=== PATIENT | female | born 2000 | race Caucasian/White ===

== ENCOUNTER 2022-08-08 01:50 | Emergency (ER) | payer OTHER, SELFPAY ==
--- NOTE | ~2022-08-08 | XR_ITS ---
Left Hand Technique: PA, oblique, and lateral views were obtained. Clinical History: Pain Findings: No acute fracture or dislocation is seen. Osseous alignment is anatomic. Joint spaces are p reserved. Soft tissues are unremarkable. Impression: Unremarkable left hand. Reviewed, dictated and finalized at location [facility] Impression: Unremarkable left hand.
[2022-08-08 01:53] VITALS: BP 112/71; PULSE 100; RESP 18; TEMP 36.2; O2SAT 100
--- NOTE | 2022-08-08 02:10 | PC.NURSE ---
Pt slammed her left thumb in car door around 1999. States she took ibuprofen and tylenol around [id number]. Bruising noted to nailbed. Mild swelling noted. Pt has been applying ice.
--- NOTE | 2022-08-08 02:18 | ED.UPPEXIN ---
HPI - Extremity Injury (Upper) General Chief Complaint: Extremity Injury, Upper Stated Complaint: left thumb injury Time Seen by Provider: 08/08/22 02:01 Source: patient and RN notes reviewed Mode of arrival: ambulatory Limitations: no limitations History of Present Illness HPI narrative: THis is a 22 year old right hand dominant female who presents for evaluation of left thumb injury. Patient states around 8 pm last night she slammed her left thumb in car door. She reports she is now having thumb and 4th finger pain. She took tylenol and naproxen at 11 pm, and her pain has not improved. She is also applying ice pack. Related Data Allergies Allergy/AdvReac Type Severity Reaction Status Date / Time No Known Allergies Allergy Unverified 03/16/20 16:51 Review of Systems Constitutional: Constitutional: Denies chills, Denies fatigue and Denies fever(s) PMFSH Past Medical History Medical History (Updated 08/08/22 @ 03:07 by Yecenia Gamez MD) Patient denies medical problems Family History Family History Grandparent Hypertension Family history of malignant neoplasm of urinary bladder Social History Social History Smoking status: Never smoker Exam Const: General: no acute distress and alert Nutritional Appearance: well nourished Orientation/consciousness: patient oriented x3 HENMT: Head: normal to inspection Eyes: EOM: EOMs intact bilaterally Resp: Effort & Inspection: normal respiratory effort Skin: General skin exam: normal color Rashes: no rashes Wounds: no wounds Neuro: General: patient oriented x3, moves all extremities and CN's II-XI intact bilaterally Extrem: Other: left thumb with subungal hematoma, FROM, no swelling Psych: Mental Status: mental status grossly normal Affect: normal affect Attitude: cooperative Course Reevaluation(s) Reevaluation #1: I Discussed with patient that preliminary reading of xray was no acute fracture, but it will be read in morning by radiologist. I Discussed treatment of subungal hematoma with nail trephination. She was agreeable to procedure since she was having severe pain. AFter procedure she reports her pain is much improved. Date: 08/08/22 Time: 03:03 Vital Signs Vital signs: Vital Signs Temperature 97.2 F L 08/08/22 01:53 Pulse Rate 100 08/08/22 01:53 Respiratory Rate 18 08/08/22 01:53 Blood Pressure 112/71 08/08/22 01:53 Pulse Oximetry 100 08/08/22 01:53 Oxygen Delivery Room Air 08/08/22 01:53 Temperature 97.2 F L 08/08/22 01:53 Pulse Rate 70 08/08/22 03:13 Respiratory Rate 14 08/08/22 03:13 Blood Pressure 110/66 08/08/22 03:13 Pulse Oximetry 100 08/08/22 03:13 Oxygen Delivery Room Air 08/08/22 01:53 Procedures Nail Trephination Nail Trephination #1: Nail Trephination Date: 08/08/22 Nail Trephination Time: 03:04 Location (finger): left and thumb Sterile prep: chlorhexidine Method of drainage: nail cautery Procedure successful: Yes Patient tolerated procedure: well Complications: bleeding Nail Trephination Comment: able to get bleeding controlled MDM - Extremity Injury (Upper) Imaging Data Attestation: I personally reviewed and interpreted this imaging study as follows: My impression: no acute fracture Discharge Plan Discharge Clinical Impression: Hematoma, subungual, thumb, left Patient Disposition: Home, Self-Care Condition: Stable Instructions: Antibiotic Form, Subungual Hematoma (ED) Additional Instructions: Keep your nail clean. Watch for signs of infection. Take naproxen or aleve for your pain. Prescriptions: No Action triamcinolone acetonide 0.1 % cream 1 applic topical BID PRN (Reason: atopic dermatitis) Qty: 15 0RF naproxen 500 mg tablet 500 mg PO BID PRN (Reason: pain) Qty: 60
[2022-08-08 03:13] VITALS: BP 110/66; PULSE 70; RESP 14; O2SAT 100
== END 2022-08-08 03:14 | disposition home or self-care (01) ==
PROVIDERS: Emergency Provider General Practice; PCP Nurse Practitioner
DX: S60.112A Contusion of left thumb with damage to nail, initial encounter (principal); W23.2XXA Caught, crushed, jammed or pinched between a moving and stationary object, initial encounter
CPT/HCPCS: 10140; 11740; 73130; 99283

== ENCOUNTER 2023-07-06 10:27 | Outpatient (CLI) | payer OTHER, SELFPAY ==
[2023-07-06 12:22] LABS: Basophils Percent Auto 0.2 % (0.2-1.2); Eosinophils Percent Auto 0.6 % (0-4.4); Immature Granulocyte Absolute 0.02 K/mm3 (0.00-0.031); Immature Granulocyte Percent A 0.3 % (0-0.5); Lymphocytes Absolute Auto 1.08 K/mm3 (0.9-3.2); Lymphocytes Percent Auto 16.4 % (18.3-44.2); Mean Corpuscular HGB Conc 33.3 g/dl (32-36); Mean Corpuscular Hemoglobin 29.2 pg (26-34); Mean Corpuscular Volume 87.6 fl (80-100); Mean Platelet Volume 9.9 fl (7.4-10.4); Monocytes Absolute Auto 0.5 K/mm3 (0.1-0.6); Monocytes Percent Auto 7.3 % (2.6-8.5); Neutrophils Percent Auto 75.2 % (45.5-73.1); Platelet Count Result 238 k/mm3 (150-375); Red Blood Count 4.11 M/mm3 (4.2-5.4); Red Cell Distribution Width 12.5 % (11.5-14.5); White Blood Count 6.6 K/mm3 (4.5-10.0)
[2023-07-06 13:06] LABS: HIV 1/2 Ab P24 Ag Result Negative (Negative)
[2023-07-06 13:18] LABS: Hepatitis B Surface Antigen Negative (Negative); Rubella IgG Antibody 8.1 IU/ML
[2023-07-06 14:53] LABS: Rapid Plasma Reagin Non-Reactive (NonReactive)
[2023-07-08 09:53] LABS: CMV IgG Antibody <0.60 U/mL (<0.60)
== END 2023-07-06 10:28 | disposition home or self-care (01) ==
LOC: ANHGOSHLAB 10:29
PROVIDERS: PCP Nurse Practitioner; Visit Provider Student in an Organized Health Care Education/Training Program
DX: Z34.90 Encounter for supervision of normal pregnancy, unspecified, unspecified trimester (principal)
CPT/HCPCS: 36415; 84702; 85025; 86592; 86644; 86703; 86747; 86762; 86787; 86850; 86900; 86901; 87086; 87340; G0432

== ENCOUNTER 2023-07-06 16:38 | Emergency (ER) | payer OTHER, SELFPAY ==
[2023-07-06 16:48] VITALS: BP 103/71; PULSE 108; RESP 14; TEMP 36.8; O2SAT 100
[2023-07-06 19:04] VITALS: BP 139/72; PULSE 97; RESP 16; TEMP 36.9; O2SAT 100
--- NOTE | 2023-07-06 22:19 | PC.NURSE ---
no answer at triage x2
== END 2023-07-06 22:19 | disposition left against medical advice (07) ==
LOC: ANHED 22:23
PROVIDERS: Emergency Provider Student in an Organized Health Care Education/Training Program; PCP Nurse Practitioner
DX: O20.9 Hemorrhage in early pregnancy, unspecified (principal)
CPT/HCPCS: 99199

== ENCOUNTER 2023-11-23 11:04 | Outpatient (CLI) | payer OTHER, SELFPAY ==
[2023-11-23 14:21] LABS: Hematocrit 31.3 % (37.0-47.0); Hemoglobin 10.4 g/dL (12.0-15.0); Mean Corpuscular HGB Conc 33.2 g/dl (32-36); Mean Corpuscular Hemoglobin 30.2 pg (26-34); Mean Platelet Volume 9.9 fl (7.4-10.4); Platelet Count Result 243 k/mm3 (150-375); Red Blood Count 3.44 M/mm3 (4.2-5.4); Red Cell Distribution Width 13.4 % (11.5-14.5); White Blood Count 10.5 K/mm3 (4.5-10.0)
[2023-11-23 15:35] LABS: Glucose 1 Hour PP 50gm Dose 115 mg/dL
[2023-11-23 15:59] LABS: HIV 1/2 Ab P24 Ag Result Negative (Negative)
== END 2023-11-23 11:05 | disposition home or self-care (01) ==
LOC: ANHGOSHLAB 11:08
PROVIDERS: PCP Nurse Practitioner; Visit Provider Student in an Organized Health Care Education/Training Program
DX: Z34.90 Encounter for supervision of normal pregnancy, unspecified, unspecified trimester (principal)
CPT/HCPCS: 36415; 82947; 85027; 86703; G0432

== ENCOUNTER 2024-01-22 20:43 | Observation (INO) | payer OTHER, SELFPAY ==
[2024-01-22 22:32] VITALS: BMI 25.8
--- NOTE | 2024-01-22 22:33 | OBADM ---
This patient, Kylee Lopez, admitted to the OB room Labor/Delivery/Recovery 105 for observation. Patient/family oriented to hospital policies and general routines including ID bracelet, bed and alarms, visiting hours, pain management, procedures, bathroom and other care routines, personal items, smoking policy, room service/diet, and visiting hours. Patient/Family are encouraged to report perceived risks to care and to ask questions if they do not understand what they are told or what they should do.
--- NOTE | 2024-01-25 11:49 | PM.OBTRLD ---
OB - Triage/Final Diagnosis Visit Information Comments/Additional reasons for admission: I have assessed the risk for this patient, Kylee Lopez, and determined that she would benefit from observation care. Final Diagnosis (1) Abdominal pain affecting : Code(s): O26.899 - Other specified related conditions, unspecified trimester; R10.9 - Unspecified abdominal pain Status: Acute
== END 2024-01-22 22:43 | disposition home or self-care (01) ==
PROVIDERS: Admitting Provider Obstetrics & Gynecology; Visit Provider Obstetrics & Gynecology
DX: O26.893 Other specified pregnancy related conditions, third trimester (principal); R10.9 Unspecified abdominal pain; Z3A.37 37 weeks gestation of pregnancy
CPT/HCPCS: G0378; G0379

== ENCOUNTER 2024-02-03 04:51 | Inpatient (IN) | payer OTHER, SELFPAY ==
[2024-02-03] VITALS (107 sets, daily range): BP systolic 79–134; BP diastolic 38–84; PULSE 84–126; RESP 12–16; TEMP 36.6–37.1; O2SAT 97–100; BMI 26.6
--- NOTE | 2024-02-03 06:37 | LDADM ---
This patient, Kylee Lopez, was admitted to Labor/Delivery/Recovery 106 on 02/03/24 at 04:51. Plans for labor, pain management and were discussed with patient. Patient/family oriented to hospital policies and general routines including ID bracelet, bed and alarms, visiting hours, pain management, procedures, bathroom and other care routines, personal items, smoking policy, room service/diet and guest tray routines, security routines, and visiting hours. Patient/Family are encouraged to report perceived risks to care and to ask questions if they do not understand what they are told or what they should do. See OBIX for further documentation.
--- NOTE | 2024-02-03 06:40 | PM.IMHP ---
H&P: HPI History of Present Illness Date/Time: 02/03/24 06:40 Chief Complaint: contractions Narrative: Kylee is a 23yo @ 38.5wks who presented to L&D with painful and frequent contractions; made change to 4cm. She desires epidural. She reports good movement. No VB or LOF. She has had regular care. Her is complicated by: - rubella/cmv non-immune - anemia- Hgb 10.4, iron supplementation - H/o genital herpes; on ppx Review of Systems Constitutional: Constitutional: Denies chills, Denies fever(s) and Denies headache(s) Eyes: Eyes: Denies change in vision ENT: Denies headache(s) Cardiovascular: Cardiovascular: Denies chest pain and Denies dyspnea Respiratory: Respiratory: Denies dyspnea Genitourinary: Genitourinary: Denies abnormal vaginal bleeding and Denies vaginal discharge Neurologic: Denies headache(s) Psychiatric: Psychiatric: Denies anxiety and Denies depression [facility] Past Medical History Medical History Patient denies medical problems Surgical History Surgical History [place] teeth extracted Family History Family History Grandparent Hypertension Family history of malignant neoplasm of urinary bladder Social History Social History Smoking status: Former smoker Alcohol intake: current Alcohol use details: occasionally/ socially Substance use: never Substance use type: does not use Lack of Transportation: No Lack of Food: Never True Current Housing: I Have Housing Concerned About Future Housing: No Difficulty Paying Gas/Electric Bills: No Difficulty Paying for Meds: No Currently Unemployed: No Education: Bachelor's Degree Difficulty w/ Childcare or Family Care: No Living arrangements: alone Spiritual care concerns: No Meds Home Medications and Allergies Home Medications Medication Instructions Recorded Confirmed Type vits 75-iron 28 mg-folic 1 pkg PO DAILY 06/19/23 02/03/24 History acid 800 mcg-omega-3 oral combo pack (One A Day Women's DHA) magnesium carb,citrate,oxide 300 mg PO DAILY 08/12/23 02/03/24 History (Magnesium Complex) pyridoxine (vitamin B6) 25 mg 25 mg PO DAILY 08/12/23 02/03/24 History tablet ferrous sulfate 325 mg (65 mg 325 mg PO DAILY 12/02/23 02/03/24 History iron) tablet valacyclovir 500 mg tablet 500 mg PO Q12H #90 tabs 01/13/24 02/03/24 Rx (Valtrex) Allergies Allergy/AdvReac Type Severity Reaction Status Date / Time No Known Allergies Allergy Verified 02/03/24 06:43 Vital Signs Vital Signs - 24 hr 02/03/24 06:15 Pulse Rate 106 H Blood Pressure 111/65 Exam Const: General: cooperative, healthy appearing and no acute distress Orientation/consciousness: patient oriented x3 Resp: Effort & Inspection: normal respiratory effort Cardio: Rate: regular rate GI: GI Palp: No abdominal tenderness : Other: FHT's: 130's/ mod lashae/ + accels/ no decels - cat 1 TOCO: ctxs q3min Cervix: 4.5/80/-1 Membranes: AROM, clear 0740 Presentation: cephalic Skin: General skin exam: normal color Neuro: General: patient oriented x3 Extrem: General: normal to inspection Psych: Appearance: grossly normal Affect: normal affect Attitude: cooperative Assessment and Plan Assessment and plan (1) Active labor at term: Status: Acute Plan - Admit to L&D - AROM performed; will start pitocin augmentation as needed but teresa regularly and making good cervical change - Continuous monitoring, currently reassuring - GBS neg - Anesthesia consult PRN pain
[2024-02-03 06:50] LABS: Basophils Percent Auto 0.2 % (0.2-1.2); Eosinophils Absolute Auto 0.1 K/mm3 (0-0.3); Eosinophils Percent Auto 0.9 % (0-4.4); Hematocrit 35.7 % (37.0-47.0); Hemoglobin 12.1 g/dL (12.0-15.0); Immature Granulocyte Percent A 0.8 % (0-0.5); Lymphocytes Percent Auto 14.6 % (18.3-44.2); Mean Corpuscular HGB Conc 33.9 g/dl (32-36); Mean Corpuscular Hemoglobin 30.9 pg (26-34); Mean Corpuscular Volume 91.3 fl (80-100); Mean Platelet Volume 9.6 fl (7.4-10.4); Monocytes Absolute Auto 1.2 K/mm3 (0.1-0.6); Monocytes Percent Auto 9.1 % (2.6-8.5); Neutrophils Absolute Auto 9.6 K/mm3 (1.3-6.7); Neutrophils Percent Auto 74.4 % (45.5-73.1); Platelet Count Result 238 k/mm3 (150-375); Red Blood Count 3.91 M/mm3 (4.2-5.4); Red Cell Distribution Width 14.9 % (11.5-14.5)
[2024-02-03 07:42] LABS: HIV 1/2 Ab P24 Ag Result Negative (Negative)
[2024-02-03] MEDS: LACTATED RINGERS 1,000 ML 125 ML IV CONT ×2 (08:52→10:02)
[2024-02-03] MEDS: fentaNYL CITRATE INJ (*CRX) 100 MCG/2 ML VIAL 50 MCG IV PUSH (09:43)
[2024-02-03] MEDS: OXYTOCIN 30 UNITS/NS 500 ML 30 UNITS/500 ML BAG IV CONT (11:57)
--- NOTE | 2024-02-03 12:16 | PM.OBPNLAB ---
Pain Control Date/time seen: 02/03/24 12:16 Pain control: epidural Pelvic Exam Dilation (cm): 9 Effacement (%): 90 station: -1 Amniotic membrane status: Ruptured Contractions Monitor mode: External Contraction frequency: 2 (-3) Status status: Category l Assessment and Plan Assessment: active labor Plan: continuous present management Comments: anticipate soon
[2024-02-03] MEDS: ONDANSETRON INJ 4 MG/2 ML VIAL IV PUSH (14:22)
[2024-02-03] MEDS: OXYTOCIN 30 UNITS/NS 500 ML 30 UNITS/500 ML BAG 999 UNITS IV CONT (18:30)
--- NOTE | 2024-02-03 18:39 | PM.OBPRVD ---
OB - Vaginal Delivery Note Procedure Delivery date: 02/03/24 Intrapartal Events: Ineffetive Pushing/Maternal Exhaustion Delivery augmentation: Rupture of Membranes and Pitocin Delivery monitor: External FHT and External Uterine Route of delivery: vacuum extraction Indication for instrumentation: maternal exhaustion Laceration Description: Perineal - 3rd Degree (3a) and Vaginal (right) Delivery repair: vicryl Specimen: Yes Quantitative Blood Loss (ml): 700 Anesthesia type: Epidural (and 8cc of 1% lido w/o epi) Disposition: Floor Complications: No immediate complications Baby Date of : 02/03/24 Time of : 17:55 Weeks of gestation at delivery: 38 (.5) Infant gender: Female presentation: vertex position: Right Occiput Anterior Placenta delivery description: Expressed Cord Vessel Description: 3 Vessels and Clamped/Cut score one minute: 8 score five minutes: 9 Narrative: Kylee progressed to complete dilation and began pushing. Her epidural was found to be dense and she did not have much feeling, therefore the infusion was significantly decreased. She pushed for approximately 2 hours with minimal descensus due to poor maternal effort, therefore the pitocin augmentation was started during pushing. She began feeling significant pain and pressure and was very upset and desired to have a break. She was given a break for approximately one hour where her epidural was bolused and she became more comfortable. During this time heart tones were always reassuring and her vital signs remained stable. She continued pushing for an additional 30 minutes at which additional descensus was noted and was +2 station. She was counseled on my recommendation for proceeding with a vacuum assisted vaginal delivery and the risks and benefits were discussed. The fuse maker was present before the delivery Due to her pushing for multiple hours and the Weber catheter had been removed, a straight catheterization was performed with 500 cc of urine output. With the next contraction the Kiwi vacuum was applied. With the patients good effort, four pulls and no pop offs were performed. The head was delivered over intact perineum. No nuchal cord was palpated. The vacuum was released from the infant's head. She easily is delivered the infant's shoulders and body without complication. The infant was immediately placed skin to skin. The Pediatric team was at bedside assessing the infant. The umbilical cord was doubly clamped and cut and the was taken over to the warmer for further assessment, where spontaneous cry was immediately heard. A segment of the cord was collected for cord gases. With Pitocin running and gentle downward traction on cord, the placenta delivered without complications. Bimanual massage was performed and good uterine tone with minimal bleeding was noted. She was examined and found to have 2 lacerations. She had a 3A perineal laceration as well as a right vaginal laceration. The rectal sphincter was found to be almost completely intact but a 3-0 Vicryl U-stitch was placed to reapproximate the small fibers that had been torn. The remaining second-degree perineal laceration was then repaired in the normal fashion using 3-0 Vicryl. The right vaginal laceration was repaired in the normal fashion using 3-0 Vicryl as well. She was found to be hemostatic. Good uterine tone with minimal bleeding was noted. She was informed of the laceration and will be given Ancef 2 g IV once and will be given stool softeners. A straight catheterization was once again performed at the end of the procedure and approximately 25 cc of urine was removed from her bladder. Sponge, lap, instrument, and needle counts were correct at the end of the procedure. Mom and baby were left bonding in the birthing suite in stable condition.
[2024-02-03] MEDS: ceFAZolin 2 GM/D5W 50 ML 2 GM/50 ML BAG IVPB (18:54)
[2024-02-03] MEDS: OXYTOCIN 30 UNITS/NS 500 ML 30 UNITS/500 ML BAG 125 UNITS IV CONT (18:55)
--- NOTE | 2024-02-03 21:08 | OBPPTRN ---
Patient transferred to post room #290 via wheelchair @ 2044. Support person present. Oriented to unit, room, information board, rooming in, admission packet and security measures. Patient verbalizes understanding.
[2024-02-03] MEDS: ACETAMINOPHEN 325 MG TABLET 650 MG PO (23:35)
[2024-02-03] MEDS: IBUPROFEN 600 MG TABLET PO (23:36)
[2024-02-04 04:10] VITALS: BP 93/61; PULSE 101; RESP 18; TEMP 36.8; O2SAT 98
--- NOTE | 2024-02-04 07:15 | P.PNOB_ITS ---
OB - PN: Subj Subjective Date/time seen: 02/04/24 07:15 Narrative: PPD#1 Kylee reports doing well today. 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 Her pain is controlled as long as she's taking the pain meds. She is voiding, passing gas, and ambulating without issues. She has not had anything to eat yet. She is breast and bottle feeding. OB - PN: Obj Data Labs 02/04/24 04:13 Labs: Laboratory Results - last 24 hr 02/03/24 02/04/24 06:27 04:13 Hgb 10.0 L Hct 29.0 L HIV 1&2 Ab/P24 Ag 4thGn Negative Blood Type B Positive Antibody Screen Negative OB - PN A/P Assessment and Plan (1) Vacuum-assisted vaginal delivery: Code(s): Z37.9 - Outcome of delivery, unspecified Status: Acute (2) Type 3a perineal laceration: Code(s): O70.21 - Third degree perineal laceration during delivery, IIIa Status: Acute Plan day: 1 Plan: routine care Comments: - PO pain meds - Regular diet - Ambulation and hydration encouraged - S/p ancef 2g IV once, stool softeners BID - Continue putting baby to breast q2-3hr Time Spent With Patient Time: Total time spent is greater than 50% in coordination of care (as documented) at patient's floor/unit and/or counseling patient: Review of Systems Constitutional: Constitutional: Denies chills, Denies fever(s) and Denies headache(s) Eyes: Eyes: Denies change in vision ENT: Denies dizziness and Denies headache(s) Cardiovascular: Cardiovascular: Denies chest pain, Denies palpitations and Denies dyspnea Respiratory: Respiratory: Denies cough and Denies dyspnea Gastrointestinal: Gastrointestinal: Denies nausea and Denies vomiting Neurologic: Denies dizziness and Denies headache(s) Endocrine: Endocrine: Denies palpitations Exam Const: General: cooperative, healthy appearing, comfortable and no acute distress Orientation/consciousness: patient oriented x3 Resp: Effort & Inspection: normal respiratory effort Auscultation: clear to auscultation bilaterally Cardio: Rate: regular rate GI: Inspection: non-distended GI Palp: No abdominal tenderness and Yes Soft to palpation Auscultation: normal bowel sounds : Other: labial swelling much improved normal lochia on pad fundus firm Skin: General skin exam: normal color Neuro: General: patient oriented x3 Extrem: General: normal to inspection Psych: Appearance: grossly normal Affect: normal affect Attitude: cooperative
[2024-02-04] MEDS: HYDROcodone/acetaminophen (*CRX) 5-325 MG TABLET 1 TAB PO (07:32)
[2024-02-04] MEDS: DOCUSATE SODIUM 100 MG CAPSULE PO ×2 (07:33→14:56)
[2024-02-04] MEDS: IBUPROFEN 600 MG TABLET PO ×3 (07:33→23:39)
[2024-02-04] MEDS: MULTIVIT/MIN/PREN/FOL AC/IRON TABLET 1 TAB PO (07:33)
[2024-02-04 08:10] VITALS: BP 97/59; PULSE 94; RESP 18; TEMP 36.5; O2SAT 99
--- NOTE | 2024-02-04 11:40 | PC.NURSE ---
Mother verbalizes she is able to independently latch with appropriate positioning and alignment. She denies consistent nipple discomfort but is sore on the right nipple. Mother states fed on that breast first and she believes that latch caused the soreness. Lanolin given and patient educated on use. Mother states just fed for 30 minutes and is now asleep skin to skin with mom. Encouraged mom to call out at the next feed for a latch check. is currently meeting outcomes for weight, output, jaundice. Mother declines any additional assistance or education at this time. Mother is encouraged to call for assistance if her doesn?t latch, pain with latching, questions or concerns. Mother voiced understanding of information shared along with the mom/baby guide for an additional resource. Reported to the Primary RN.
--- NOTE | 2024-02-04 14:01 | WPDANLDPN2 ---
Anes-Prog Note L&D Date/Time: 02/04/24 14:01 Comfortable throughout: labor and delivery Neuraxial method: epidural Epidural/Spinal procedure site: clean & non-tender Neuro status: Neuro function grossly intact. Cardiovascular status: normal Respiratory status: normal Airway patency: baseline Mental status: baseline Post-Op hydration status: normal Vital Signs: Last Vital Signs Temp 36.5 C 02/04/24 08:10 Pulse 94 02/04/24 08:10 Resp 18 02/04/24 08:10 BP 97/59 L 02/04/24 08:10 Pulse Ox 99 02/04/24 08:10 O2 Del Method Room Air 02/03/24 06:35 Pain score (VAS): 3/10 Post-procedural complaints: none Patient feedback: Patient satisfied with anesthetic care.
[2024-02-04 14:37] LABS: Rapid Plasma Reagin Non-Reactive (NonReactive)
[2024-02-04] MEDS: ACETAMINOPHEN 325 MG TABLET 650 MG PO ×2 (14:56→23:38)
[2024-02-04 19:32] VITALS: BP 109/61; PULSE 97; RESP 18; TEMP 37.2; O2SAT 99
[2024-02-05 01:15] VITALS: BP 104/70; PULSE 64; RESP 16; TEMP 36.9
--- NOTE | 2024-02-05 08:12 | PM.OBDSVD ---
DS: Admitting Diagnosis Discharge Date 02/05/24 Admitting Diagnosis Active labor at term DS: Discharge Diagnosis Discharge Diagnosis (1) Vacuum-assisted vaginal delivery: Code(s): Z37.9 - Outcome of delivery, unspecified Status: Acute (2) Type 3a perineal laceration: Code(s): O70.21 - Third degree perineal laceration during delivery, IIIa Status: Acute OB - DS: Summary OB Procedures : Ultrasound OB Procedures Intrapartum: Vacuum extraction OB Procedures: : None Peripartum Data Delivery Method: Assisted Delivery Laceration Description: Perineal - 3rd Degree (3a) and Vaginal (right) Episiotomy description: None complications: none 1: Gender: Female Disposition of : home Status at Discharge Functional status at discharge: independent ambulation Overall status at discharge: patient is back to baseline Time Spent with Patient Time attestation: Total time spent providing and/or coordinating discharge services: Exam Const: General: cooperative, healthy appearing, comfortable and no acute distress Orientation/consciousness: patient oriented x3 Resp: Effort & Inspection: normal respiratory effort Auscultation: clear to auscultation bilaterally Cardio: Rate: regular rate GI: Inspection: non-distended GI Palp: No abdominal tenderness and Yes Soft to palpation Auscultation: normal bowel sounds : Other: fundus firm Skin: General skin exam: normal color Neuro: General: patient oriented x3 Extrem: General: normal to inspection Psych: Appearance: grossly normal Affect: normal affect Attitude: cooperative DS: Data Data Completed and Pending Labs on day of discharge: Labs from last 24 hours 02/04/24 02/03/24 04:13 06:27 Hgb 10.0 L Hct 29.0 L RPR Non-reactive Discharge Plan Discharge Attending physician on discharge: Cherie Haro Discharging Clinician: Cherie Haro Anticipated Discharge Date/Time: 02/05/24 11:00 Patient Disposition: Home, Self-Care Activity: may shower and pelvic rest Diet: regular Patient Instructions: Perineal Tear with Delivery (DC), Vaginal Delivery (DC) Stand Alone Forms: General Discharge Information Follow-up/Referrals: Cherie Haro MD [Physician] - 4 Weeks Discharge Medications: New acetaminophen 325 mg Tablet 650 mg PO Q6H PRN (Reason: Mild Pain (1-3) Or Headache) Qty: 90 0RF docusate sodium 100 mg Capsule 100 mg PO BID Qty: 90 0RF ibuprofen 600 mg Tablet 600 mg PO Q6H PRN (Reason: Cramping) Qty: 60 0RF Continued One A Day Women's DHA 28 mg iron- 800 mcg combo pack 1 pkg PO DAILY Magnesium Complex 300 mg magnesium tablet 300 mg PO DAILY ferrous sulfate 325 mg (65 mg iron) tablet 325 mg PO DAILY Discontinued valacyclovir [Valtrex] 500 mg tablet 500 mg PO Q12H Qty: 90 1RF pyridoxine (vitamin B6) 25 mg tablet 25 mg PO DAILY Date of admission: 02/03/24 04:51 Primary Care Provider: UNKNOWN,DOCTOR Admitting Provider: Cherie Haro Attending physician on admission: Cherie Haro Condition: Stable
[2024-02-05] MEDS: ACETAMINOPHEN 325 MG TABLET 650 MG PO (08:26)
[2024-02-05] MEDS: IBUPROFEN 600 MG TABLET PO (08:26)
[2024-02-05] MEDS: DOCUSATE SODIUM 100 MG CAPSULE PO (08:26)
[2024-02-05] MEDS: MULTIVIT/MIN/PREN/FOL AC/IRON TABLET 1 TAB PO (08:26)
[2024-02-05 09:15] VITALS: BP 90/52; PULSE 73; RESP 16; TEMP 36.8; O2SAT 98
[2024-02-05] MEDS: MEASLES,MUMPS,RUBELLA VACCINE 0.5 ML VIAL SUB-Q (10:16)
--- NOTE | 2024-02-05 10:45 | PC.NURSE ---
0910-Patient sleeping. 1045- Consulted with mother concerning needs and she shared her ability to independently latch optimally without pain. Mother is feeding appropriately for growth of and understands stimulating infant to eat if needed. has had appropriate feedings in the last 24 hours meets the outcomes for weight, output, blood sugar and jaundice at this time. Reinforced understanding of milk production, signs of adequate intake, community resources, and when to call a provider using the resource of the feeding sheet along with the mom and baby guide. Mother voiced understanding of the information shared, is confident to continue effectively her at home, when to call for assistance, denies any additional assistance or education at this time. Reported to the Primary RN.
[2024-02-06 11:21] VITALS: BP 109/72; PULSE 86; RESP 18; TEMP 37.2; O2SAT 100
== END 2024-02-05 11:27 | disposition home or self-care (01) | DRG 768 ==
LOC: ANHLDR 09:07 → ANHOB2 20:51
PROVIDERS: Admitting Provider Obstetrics & Gynecology; Visit Provider Obstetrics & Gynecology
DX: O99.02 Anemia complicating childbirth (principal); Z37.0 Single live birth; O98.52 Other viral diseases complicating childbirth; O70.21 Third degree perineal laceration during delivery, IIIa; D64.9 Anemia, unspecified; B00.9 Herpesviral infection, unspecified; Z3A.38 38 weeks gestation of pregnancy; Z87.891 Personal history of nicotine dependence
CPT/HCPCS: 36415; 85014; 85018; 85025; 86592; 86703; 86850; 86900; 86901; 90710; A9270; G0432; J0690; J2405; J2590; J2795; J3010; J7120